=== PATIENT | female | born 1960 | race Caucasian/White ===

== ENCOUNTER 2024-02-13 13:23 | Emergency (ER) | payer BC, MEDICARE ==
[2024-02-13] MEDS ORDERED: diphenhydrAMINE 25 MG CAP ONE (13:54)
[2024-02-13] MEDS ORDERED: predniSONE 20 MG TAB ONE (13:55)
[2024-02-13] MEDS ORDERED: diphenhydrAMINE 50 MG/ML VIAL ONE (13:57)
== END 2024-02-13 14:02 | disposition home or self-care (01) ==
LOC: MADERS 13:23
DX: S60.562A Insect bite (nonvenomous) of left hand, initial encounter (principal); F17.290 Nicotine dependence, other tobacco product, uncomplicated; W57.XXXA Bitten or stung by nonvenomous insect and other nonvenomous arthropods, initial encounter
CPT/HCPCS: 96372; 99283; J1200; J7512